=== PATIENT | female | born 1980 | race Caucasian/White ===

== ENCOUNTER 2016-11-18 09:44 | Emergency (ER) | payer MEDICAID ==
[~2016-11-18] VITALS: Wt 80.0 kg
[~2016-11-18 09:44] MED LIST: AMO500 PO; DICY20TA59 PO; IBUP-1542 PO; NO MEDS; ONDA4TAB14 PO
--- NOTE | 2016-11-18 10:42 | ERD ---
ER Documentation Chief Complaint Date/Time DATE: 11/18/16 TIME: 10:15 Chief Complaint cough and congestion with ear pain and sore throat for 1 week HPI 36 y/o female presents to ED for left ear pain, cough and congestion for about a week. Exposed to sun who is the same symptoms. States that he felt like she has a fever the other day but never took her temperature. Left ear pain was described as achy non-radiating with a pain rate of 4/10 at this time. Did not take any pain medications at home. Denies headache, loss of consciousness, dizziness, blurry vision, changes in vision, photophobia, facial pain, throat pain, difficulty swallowing, neck pain , shoulder pain, chest pain, cough, hemoptysis, abdominal pain, back pain, loss of appetite, nausea, vomiting, hematochezia, diarrhea, constipation, urinary symptoms, , the possibility of being , bladder and bowel incontinences, extremity weakness, extremity tenderness, numbness or tingling sensation, difficulty walking, recent travel, recent antibiotic use in the last 3 months, fever, chills. 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 Denies smoking, use of alcohol, use of illegal drugs. ROS All systems reviewed and are negative except as per history of present illness. Medications Home Meds Active Scripts Ondansetron (Ondansetron Odt) 4 Mg Tab.rapdis, 4 MG PO Q8 Y for NAUSEA AND/OR VOMITING, #30 TAB Prov:LAM DUAGN NP 09/24/16 Dicyclomine Hcl* (Bentyl*) 20 Mg Tablet, 20 MG PO QID, #20 TAB Prov:LAM DUGAN NP 09/24/16 Ibuprofen* (Motrin*) 600 Mg Tab, 600 MG PO Q6, #20 TAB Prov:AKHIL REESE PA-C 11/28/15 Amoxicillin* (Amoxicillin*) 500 Mg Cap, 500 MG PO TID for 7 Days, CAP Prov:AKHIL REESE PA-C 11/28/15 Reported Medications [No Meds] No Conflict Check 02/06/11 Allergies Allergies: Coded Allergies: No Known Allergy (Verified , 11/28/15) PMhx/Soc History of Surgery: Yes () Anesthesia Reaction: No Hx Neurological Disorder: No Hx Respiratory Disorders: No Hx Cardiac Disorders: No Hx Psychiatric Problems: No Hx Miscellaneous Medical Probl: No Hx Alcohol Use: No Hx Substance Use: No Hx Tobacco Use: No Smoking Status: Current every day smoker Physical Exam Vitals Vital Signs Date Time Temp Pulse Resp B/P Pulse Ox O2 Delivery O2 Flow Rate FiO2 11/18/16 09:48 98.0 79 21 126/76 98 Physical Exam CONSTITUTIONAL: Well-appearing; well-nourished; in no apparent distress. HEAD: Normocephalic; atraumatic. EYES: Conjunctiva clear, sclera non-icteric, EOM intact. PERRL Ears: Hearing intact. EACs clear, TMs non-bulging, non-inflamed, translucent & mobile, ossicles normal appearance, No obstructions, no erythema, no discharges Nose: No obstruction. Mild congestion no polyps. No external lesions. No external lesions, septum and turbinates normal. No rhinorrhea. No discharges. Frontal sinus is tender to palpation. Maxillary sinus is tender to palpation. MOUTH: Moist mucous membranes, no lesion, no obstructions, no vesicles, no thrush, patent airway Throat: Uvula in midline. Right tonsil is +1 with no erythema, no exudate. Left tonsil is +1 with no erythema, no exudate. Tolerating secretions well. Good gag reflex. Patent airway. Neck: Supple, without lesions, bruits, or adenopathy. No mass. Thyroid non- enlarged and non-tender to palpation. CHEST: Symmetrical chest. Respirations even and not labored. No retractions noted. CARDIOVASCULAR: Normal S1, S2. RRR. No murmurs, gallops. RESPIRATORY: Normal chest excursion with respiration; breath sounds clear and equal bilaterally; no wheezes, rhonchi, or rales. Breathing even and unlabored. Speaking in clear, full, and complete sentences w/ ease. ABDOMEN: Normal bowel sounds normal. Soft, round, non-distended, non-guarding, no tenderness, no rebound, no organomegaly, no masses, no pulsating abdominal mass. No hernia. No peritoneal signs. : No CVA tenderness. BACK: Symmetrical shoulder. Spine is midline without deformity, tenderness. No evidence of trauma or deformity. PELVIS: Stable pelvis. No evidence of trauma or deformity. MUSCULOSKELETAL: Normal gait and station. No misalignment, asymmetry, crepitation, defects, tenderness, masses, effusions, decreased range of motion, instability, atrophy or abnormal strength or tone in the head, neck, spine, ribs , pelvis or extremities. No calf tenderness. NEUROVASCULAR: Distal pulses are present. Pedal pulse are present, equal, and normal. Capillary refills are < 2 seconds. NEUROLOGIC: Alert and oriented x4. Speaks full and clear sentences. Cranial Nerves II-XII normal. Sensation to pain, touch, and proprioception normal. Grossly unremarkable. No neurologic deficits. Romberg test is negative. PSYCHOLOGICAL: The patients mood and manner are appropriate. No hallucinations , delusions. Not SI. Not HI. Has the capacity to decide for self SKIN: Normal for age and ethnicity; warm; dry; good turgor; no apparent lesions or exudates. No rashes, hives, discoloration. Intact. Procedures/MDM Examination: Unremarkable examination except mild congestion; frontal and maxillary sinus tenderness on palpation. Disease process, medical treatment was explained to the patient and family member. They verbalized understanding and agreed with the diagnostic tests, medical treatment, and follow-up care. Consultation: None Differential diagnosis: Mastoiditis versus otitis media versus otitis externa versus upper respiratory infection versus sinusitis Medical decision [id number] y/o female presents to ED for left ear pain, cough and congestion for about a week. Exposed to sun who is the same symptoms. States that he felt like she has a fever the other day but never took her temperature. Left ear pain was described as achy non-radiating with a pain rate of 4/10 at this time. Did not take any pain medications at home. Patient's complaint, patient's presentation, my physical findings are consistent with my final diagnosis of acute clinical sinusitis. Medications prescribed are the following: Augmentin, Robitussin Patient and family member are made aware of the side effects and adverse reactions of the medications prescribed. Instructed on when to seek emergent and medical attention in case allergic/anaphylactic reactions or severe side effects and or adverse reactions to medications. Patient and family member verbalized understanding. Patient instructed Instructed to follow-up with his PCP in 24-48 hours. Instructed to Call 911 for chest pain, shortness of breath. Advised to come back here in ED as soon as possible for severity of symptoms which includes but not limited to: any new symptoms; shortness of breath/difficulty of breathing; cardiovascular changes; severe gastrointestinal symptoms; signs and symptoms of bleeding and or infection; signs of compartment syndrome/neurovascular changes; neurological changes/deficits. Patient and family member verbalized understanding. Upon discharge, patient is alert and oriented x 4, speaks full and clear sentences, denies pain, has no neurological deficits, has no neurovascular deficits, difficulty of breathing. Breathing even and unlabored. Lung sounds are clear to auscultation. Not in distress. Appears comfortable. Ambulatory with steady gait. Appears satisfied with care provided here in ED. Departure Diagnosis: Primary Impression: Sinusitis Sinusitis location: frontal Chronicity: acute Recurrence: not specified as recurrent Qualified Code: J01.10 - Acute frontal sinusitis, recurrence not specified Condition: Good Additional Instructions: Follow-up with PCP in 24-48 hours. BRENNAN RICHEY Nov 18, 2016 10:42
[2016-11-18] MEDS ORDERED: GUAI-637 PO (10:43)
[2016-11-18] MEDS ORDERED: AMOX1TAB10 PO (10:43)
== END 2016-11-18 11:26 | disposition home or self-care (01) ==
LOC: FTE 09:44
DX: J01.10 Acute frontal sinusitis, unspecified (principal); F17.210 Nicotine dependence, cigarettes, uncomplicated
CPT/HCPCS: 99283

== ENCOUNTER 2019-01-13 09:10 | Emergency (ER) | payer OTHER ==
[~2019-01-13] VITALS: Wt 89.0 kg
[~2019-01-13 09:10] MED LIST changes: -AMO500 PO; +AMOX1TAB10 PO; +AMOX500C2 PO; +GUAI-637 PO
[2019-01-13 09:14] VITALS: BP 138/64; PULSE 89; RESP 18
[2019-01-13] MEDS ORDERED: ALBUTEROL 0.083% (NEB) 2.5 MG/3 ML AMP HHN STA (09:53)
[2019-01-13] MEDS ORDERED: DEXAMETHASONE 10 MG/ML 1 ML INJ IM ONE (10:00)
[2019-01-13] MEDS ORDERED: IPRATROPIUM (NEB) 0.5 MG/2.5 ML AMP HHN ONE (10:00)
[2019-01-13] MEDS ORDERED: PRED20TA PO (11:01)
[2019-01-13] MEDS ORDERED: BENZ-6 PO (11:01)
[2019-01-13] MEDS ORDERED: ALBU8.5H8 INH (11:01)
[2019-01-13] MEDS ORDERED: PROM6.2515 PO (11:01)
--- NOTE | 2019-01-13 14:05 | ERD ---
ER Documentation Chief Complaint Chief Complaint cough x 3 days HPI 38-year-old female presenting with dry cough for the last 4 days. Patient has no fevers. She has a history of asthma. She states that her inhalers not working. She has not taken medication today. Denies other medical problems. NKDA. Surgical history denies. Social history denies ROS All systems reviewed and are negative except as per history of present illness. Medications Home Meds Active Scripts Albuterol Sulfate* (Proair HFA*) 8.5 Gm Hfa.aer.ad, 2 PUFF INH Q4, #1 INHALER Prov:TROY JAEGER PA-C 01/13/19 Benzonatate* (Tessalon Perle*) 100 Mg Capsule, 100 MG PO Q8H PRN for COUGH, #30 CAP Prov:TROY JAEGER PA-C 01/13/19 Prednisone* (Prednisone*) 20 Mg Tab, 40 MG PO DAILY for 4 Days, TAB Prov:TROY JAEGER PA-C 01/13/19 Promethazine Hcl* (Promethazine Hcl* Syrup) 6.25 Mg/5 Ml Syrup, 6.25 MG PO Q6H PRN for COUGH, #100 ML Prov:TROY JAEGER PA-C 01/13/19 Guaifenesin* (Robitussin*) 100 Mg/5 Ml Syrup, 100 MG PO Q4H PRN for COUGH for 7 Days, ML Prov:BRENNAN RICHEY 11/18/16 Amoxicillin/Potassium Clav (Amox-Clav 875-125 mg Tablet) 875-125 mg Tab, 1 TAB PO BID for 7 Days, #14 TAB Prov:BRENNAN RICHEY 11/18/16 Ondansetron (Ondansetron Odt) 4 Mg Tab.rapdis, 4 MG PO Q8 PRN for NAUSEA AND/OR VOMITING, #30 TAB Prov:LAM DUGAN NP 09/24/16 Dicyclomine Hcl* (Bentyl*) 20 Mg Tablet, 20 MG PO QID, #20 TAB Prov:LAM DUGAN NP 09/24/16 Ibuprofen* (Motrin*) 600 Mg Tab, 600 MG PO Q6, #20 TAB Prov:AKHIL REESE PA-C 11/28/15 Amoxicillin* (Amoxicillin*) 500 Mg Cap, 500 MG PO TID for 7 Days, CAP Prov:AKHIL REESE PA-C 11/28/15 Reported Medications [No Meds] No Conflict Check 02/06/11 Allergies Allergies: Coded Allergies: No Known Allergy (Verified , 11/28/15) PMhx/Soc History of Surgery: Yes (,ovarian tumor removal) Anesthesia Reaction: No Hx Neurological Disorder: No Hx Respiratory Disorders: No Hx Cardiac Disorders: No Hx Psychiatric Problems: No Hx Miscellaneous Medical Probl: No Hx Alcohol Use: No Hx Substance Use: No Hx Tobacco Use: No Smoking Status: Never smoker FmHx Family History: No diabetes, No coronary disease, No other Physical Exam Vitals Vital Signs Date Temp Pulse Resp B/P (MAP) Pulse Ox O2 O2 Flow FiO2 Time Delivery Rate 01/13/19 85 20 99 21 10:00 01/13/19 98.1 89 18 138/64 99 09:14 (88) Physical Exam GENERAL: The patient is well-appearing, well-nourished, in no acute distress HEENT: Atraumatic. Conjunctivae are pink. Pupils equal, round, and reactive to light. There is no scleral icterus. Tympanic membranes clear bilaterally. Oropharynx clear. NECK: C-spine is soft and supple. There is no meningismus. There is no cervical lymphadenopathy. CHEST: Diffuse wheezing heard on auscultation. No focal rhonchi. HEART: Regular rate and rhythm. No murmurs, clicks, rubs or gallops. Results 24 hrs Current Medications Medications Dose Sig/Jing Start Time Status Last (Trade) Ordered Route PRN Stop Time Admin Dose Reason Admin Albuterol 5 mg ONCE STAT 01/13/19 DC 01/13/19 (Proventil HHN 09:53 09:59 0.083% (Neb)) 01/13/19 09:56 Ipratropium 0.5 mg ONCE ONCE 01/13/19 DC 01/13/19 [place] HHN 10:00 09:59 (Atrovent 01/13/19 10:01 0.02% (Neb)) 10 mg ONCE ONCE 01/13/19 DC 01/13/19 Dexamethasone IM 10:00 10:05 (Decadron) 01/13/19 10:01 Procedures/MDM DIAGNOSTIC IMAGING REPORT Patient: CARON SOLANO : 1980 Age: 38 Sex: F MR [facility]: [id number] [facility]: [id number] DOS: 01/13/19 0953 Ordering MD: MARCE JAEGER PA-C Location: [facility] Room/Bed: PROCEDURE: XR Chest. CLINICAL INDICATION: Cough TECHNIQUE: Single frontal view of the chest was obtained COMPARISON: CR CHEST 08/14/2015 FINDINGS: The heart and mediastinum are within normal limits. The lungs are clear. There is no pleural effusion or pneumothorax. RPTAT: AA IMPRESSION: No acute disease. ER Course: Albuterol and Atrovent given in ED. Decadron given in ED MDM: 38 yr old female complaining of cough. Patient is discharged with supportive medications. I have low suspicion for respiratory distress or hypoxia. I have low suspicion for pneumonia. Patient is discharged with stricter precautions and told to follow-up with primary care within 1-2 days for close evaluation. Patient is told if symptoms change or worsen to return immediately to the ER. All questions answered at discharge Departure Diagnosis: Primary Impression: Cough Condition: Stable Patient Instructions: Cough, Chronic, Uncertain Cause (Child) Referrals: COMMUNITY CLINICS YOU HAVE RECEIVED A MEDICAL SCREENING EXAM AND THE RESULTS INDICATE THAT YOU DO NOT HAVE A CONDITION THAT REQUIRES URGENT TREATMENT IN THE EMERGENCY DEPARTMENT. FURTHER EVALUATION AND TREATMENT OF YOUR CONDITION CAN WAIT UNTIL YOU ARE SEEN IN YOUR DOCTORS OFFICE WITHIN THE NEXT 1-2 DAYS. IT IS YOUR RESPONSIBILITY TO MAKE AN APPOINTMENT FOR FOLOW-UP CARE. IF YOU HAVE A PRIMARY DOCTOR --you should call your primary doctor and schedule an appointment IF YOU DO NOT HAVE A PRIMARY DOCTOR YOU CAN CALL OUR PHYSICIAN REFERRAL HOTLINE AT IF YOU CAN NOT AFFORD TO SEE A PHYSICIAN YOU CAN CHOSE FROM THE FOLLOWING [facility] [employer] [address] [facility]. [facility] [address] [facility] [address] [facility]. [facility] [address] [facility]. [facility] [address] [facility] [address] Additional Instructions: FOLLOW UP WITH YOUR PRIMARY CARE PHYSICIAN TOMORROW.Return to this facility if you are not improving as expected. TROY JAEGER PA-C Jan 13, 2019 14:05
== END 2019-01-13 11:09 | disposition home or self-care (01) ==
LOC: FTE 09:10
DX: R05 Cough (principal); J45.901 Unspecified asthma with (acute) exacerbation
CPT/HCPCS: 71045; 94664; 96372; J1100; Z7502; Z7610